=== PATIENT | female | born 1975 | race Caucasian/White ===

== ENCOUNTER → 2021-06-10 07:37 | Outpatient (CLI) | payer BC, SELFPAY ==
[2021-06-10 13:28] LABS: Influenza A QL RT-PCR Negative (Negative); Influenza B QL RT-PCR Negative (Negative); SARS-CoV-2 RNA PCR Negative
== END ==
PROVIDERS: PCP Family Medicine; Visit Provider Physician Assistant
DX: R50.9 Fever, unspecified (principal); Z20.822 Contact with and (suspected) exposure to COVID-19
CPT/HCPCS: 87502; C9803; U0003; U0005

== ENCOUNTER 2023-07-13 07:59 | Outpatient (CLI) | payer OTHER, SELFPAY ==
[2023-07-13 18:55] LABS: Hematocrit 42.8 % (37.0-47.0); Hemoglobin 13.3 g/dL (12.0-15.0); Mean Corpuscular HGB Conc 31.1 g/dl (32-36); Mean Corpuscular Hemoglobin 28.5 pg (26-34); Mean Corpuscular Volume 91.6 fl (80-100); Mean Platelet Volume 9.7 fl (7.4-10.4); Platelet Count Result 281 k/mm3 (150-375); Red Blood Count 4.67 M/mm3 (4.2-5.4); Red Cell Distribution Width 13.5 % (11.5-14.5); White Blood Count 7.6 K/mm3 (4.5-10.0)
[2023-07-13 19:18] LABS: Alanine Aminotransferase 30 U/L (6-35); Albumin Level 4.4 g/dL (3.5-5.1); Alkaline Phosphatase 94 U/L (38-126); Anion Gap 7 mmol/L (8-16); Aspartate Amino Transferase 34 U/L (14-36); Bilirubin,Total 0.6 mg/dL (0.2-1.3); Blood Urea Nitrogen 13 mg/dL (7-17); Carbon Dioxide 31 mmol/L (22-30); Chloride 100 mmol/L (98-107); Cholesterol 161 mg/dL (0-200); Estimated Glomerular Filt Rate 60; Glucose 78 mg/dL (65-110); HDL Direct 47 mg/dL; Sodium 138 mmol/L (137-145); Triglycerides 199 mg/dL (<150)
[2023-07-13 19:27] LABS: Free T4 Free Thyroxine 0.92 ng/mL (0.78-2.19)
[2023-07-13 19:28] LABS: LDL Cholesterol Direct 69 mg/dL
== END 2023-07-13 08:00 | disposition home or self-care (01) ==
LOC: ANHGOSHLAB 08:00
PROVIDERS: PCP Family Medicine; Visit Provider Physician Assistant
DX: R53.83 Other fatigue (principal); Z13.220 Encounter for screening for lipoid disorders; D64.9 Anemia, unspecified; Z13.1 Encounter for screening for diabetes mellitus
CPT/HCPCS: 36415; 80053; 80061; 84439; 84443; 85027

== ENCOUNTER 2023-10-15 00:09 | Emergency (ER) | payer OTHER, SELFPAY ==
--- NOTE | ~2023-10-15 | XR_ITS ---
Right Knee Technique: AP, lateral, and sunrise views were obtained. Clinical History: Injury Findings: No fracture or dislocation is seen. Osseous alignment is anatomic. Joint spaces are preserv ed without degenerative or erosive change. Soft tissues are unremarkable. No joint effusion is seen. Impression: Unremarkable right knee radiographs. Reviewed, dictated and finalized at location . Impression: Unremarkable right knee radiographs.
[2023-10-15 00:33] VITALS: BP 137/92; PULSE 77; O2SAT 99
--- NOTE | 2023-10-15 00:58 | ED.FALL ---
HPI - Fall General Chief Complaint: Extremity Injury, Lower Stated Complaint: r knee pain Time Seen by Provider: 10/15/23 00:37 Related Data Home Medications Medication Instructions Recorded Confirmed ascorbic acid (vitamin C) 500 mg mg PO 03/18/21 10/09/23 capsule cyanocobalamin (vitamin B-12) 1,000 mcg PO DAILY 03/18/21 10/09/23 1,000 mcg capsule ferrous sulfate 325 mg (65 mg 325 mg PO DAILY 07/10/22 10/09/23 iron) tablet Allergies Allergy/AdvReac Type Severity Reaction Status Date / Time citalopram Allergy Unknown Unknown Verified 10/15/23 00:21 Sulfa (Sulfonamide Allergy Unknown Unknown Verified 10/15/23 00:21 Antibiotics) [facility] Past Medical History Medical History Anxiety COVID-19 Depression HLD (hyperlipidemia) Pre-diabetes Family History Family History Mother Mood disorder Sibling Diabetes mellitus Mood disorder Other Hypertension Social History Social History Smoking status: Never smoker Second hand tobacco smoke exposure: No Alcohol intake: never Substance use: never Substance use type: does not use Lack of Transportation: No Lack of Food: Never True Current Housing: I Have Housing Concerned About Future Housing: No Difficulty Paying Gas/Electric Bills: No Difficulty Paying for Meds: No Currently Unemployed: No Education: Associate Degree Difficulty w/ Childcare or Family Care: No Living arrangements: with family Spiritual care concerns: No Agree to blood products: Yes Exam Narrative: General: Alert, awake, afebrile, in no acute distress. HEENT: PERRL, no rhinorrhea, no post nasal drip, oropharynx clear. Cardiovascular: Regular rate and rhythm, no murmurs, rubs or gallops, no peripheral edema. Respiratory: Clear to auscultation bilaterally, no tachypnea, no wheezing, no rhonchi, no rubs, no respiratory distress. Abdomen: Soft, nontender, nondistended, no rebound, no guarding, no peritoneal signs. Musculoskeletal: No joint swelling or deformity, normal muscle tone, intact right knee flexion and extension, no effusion palpated, tenderness palpation over the superior aspect of the right knee joint. Skin: No rashes or petechia, no signs of infection. Neurological: Alert and oriented to person, place, and time. Follows all commands. No focal deficits, speech is clear and fluent. Course Vital Signs Vital signs: Vital Signs Pulse Rate 77 10/15/23 00:33 Blood Pressure 137/92 H 10/15/23 00:33 Pulse Oximetry 99 10/15/23 00:33 Pulse Rate 77 10/15/23 00:33 Blood Pressure 137/92 H 10/15/23 00:33 Pulse Oximetry 99 10/15/23 00:33 MDM - Fall MDM Narrative Medical decision making narrative: The patient was evaluated by myself in the emergency department. History is obtained from patient who is an independent historian and physical exam was performed. External medical records were reviewed at this time. Imaging studies obtained included a right knee x-ray which was independently interpreted by me revealing no acute process, which is pending final radiology interpretation. Patient was informed that the x-rays could currently pending official radiology read and that although I did not visualize any fractures, she could have some ligamentous injury which would require an MRI. Patient was provided with an Dylon wrap and informed that she needs to follow up with Orthopedics in 1 week patient is agreeable. She was administered oral [place] 5-325 mg for pain and instructed that at home she can take Tylenol and or ibuprofen as needed for pain and follow the rice pneumonic. Differential diagnosis considerations include ligamentous injury, fractures, contusion. Comorbidities impacting this visit include none. I have evaluated and discussed social dete
== END 2023-10-15 01:18 | disposition home or self-care (01) ==
PROVIDERS: Emergency Provider Emergency Medicine; PCP Nurse Practitioner Family
DX: M23.91 Unspecified internal derangement of right knee (principal); E78.5 Hyperlipidemia, unspecified
CPT/HCPCS: 73562; 99283; A9270

== ENCOUNTER 2023-11-20 07:34 | Emergency (ER) | payer OTHER, SELFPAY ==
--- NOTE | ~2023-11-20 | XR_ITS ---
Right Shoulder Technique: AP and scapular Y views were obtained. Clinical History: Pain Findings: No fracture or dislocation is seen. Osseous alignment is anatomic. The glenohumeral and acr omioclavicular joint spaces are preserved. Soft tissues are unremarkable. Impression: Unremarkable right shoulder radiographs. Reviewed, dictated and finalized at [facility]. Impression: Unremarkable right shoulder radiographs.
--- NOTE | ~2023-11-20 | XR_ITS ---
Right wrist Technique: PA, oblique, lateral, and ulnar deviation views were obtained. Clinical History: Pain Findings: No acute fracture or dislocation is seen. Osseous alignment is anatomic. Joint spaces are p reserved. Soft tissues are unremarkable. Impression: Unremarkable right wrist radiographs. Reviewed, dictated and finalized at location . Impression: Unremarkable right wrist radiographs.
[2023-11-20 07:40] VITALS: BP 134/74; PULSE 94; RESP 20; TEMP 36.2; O2SAT 98
--- NOTE | 2023-11-20 09:49 | ED.FALL ---
HPI - Fall General Chief Complaint: Fall Stated Complaint: fall Time Seen by Provider: 11/20/23 07:55 History of Present Illness HPI Narrative: This is a 48-year-old female, with history of hyperlipidemia and hypertension, presents emergency department after a fall down stairs. The patient states she was in her normal health, when she felt dizzy and slipped down 10 stairs. She states she hit her head but did not lose consciousness. She denies taking blood thinners. She complains of right shoulder, right knee and right wrist pain, all described as dull and rated 5/10. She states she took ibuprofen this morning with improvement. She has no other complaints at this time. Related Data Home Medications Medication Instructions Recorded Confirmed ascorbic acid (vitamin C) 500 mg mg PO 03/18/21 10/09/23 capsule cyanocobalamin (vitamin B-12) 1,000 mcg PO DAILY 03/18/21 10/09/23 1,000 mcg capsule ferrous sulfate 325 mg (65 mg 325 mg PO DAILY 07/10/22 10/09/23 iron) tablet Allergies Allergy/AdvReac Type Severity Reaction Status Date / Time citalopram Allergy Unknown Unknown Verified 11/20/23 07:59 Sulfa (Sulfonamide Allergy Unknown Unknown Verified 11/20/23 07:59 Antibiotics) Review of Systems Review of Systems: All systems reviewed & are unremarkable except as noted in HPI and below PMFSH Past Medical History Medical History Anxiety COVID-19 Depression HLD (hyperlipidemia) Pre-diabetes Family History Family History Mother Mood disorder Sibling Diabetes mellitus Mood disorder Other Hypertension Social History Social History (System 10/19/23 @ 16:18 by Sushant Fong) Smoking status: Never smoker Second hand tobacco smoke exposure: No Alcohol intake: never Substance use: never Substance use type: does not use Lack of Transportation: No Lack of Food: Never True Current Housing: I Have Housing Concerned About Future Housing: No Difficulty Paying Gas/Electric Bills: No Difficulty Paying for Meds: No Currently Unemployed: No Education: Associate Degree Difficulty w/ Childcare or Family Care: No Living arrangements: with family Spiritual care concerns: No Agree to blood products: Yes Exam Narrative: GENERAL: Well-developed, well-nourished, and in no acute distress. HEAD: Normocephalic, atraumatic. EYES: PERRLA and EOMI. ENT: Nares clear, no rhinorrhea or epistaxis. Mucous membranes moist. Oropharynx without tonsillar hypertrophy exudate or other lesions. Bilateral TMs pearly lovelace nonbulging NECK: Supple. No midline spine tenderness to palpation, crepitus CHEST: Clear to auscultation. No respiratory distress. No wheezes rales or rhonchi HEART: Regular rate and rhythm. No murmur heard. Normal peripheral pulses. ABDOMEN: Soft, nontender, nondistended, normal active bowel sounds. BACK: No midline spine tenderness to palpation, crepitus EXTREMITIES: Mildly tender to palpation over the right shoulder, tender palpation over the right wrist. Minimal tenderness to palpation over the right knee, primarily in the lateral aspect. No real noted deformities. Normal range of motion. No edema. SKIN: Warm, dry, no rash. NEURO: Alert and oriented x3. No focal deficit. Moving all 4 limbs spontaneously PSYCH: Normal mood and affect. Course Course Emergency Course: 09:50 -x-rays not concerning for fracture or dislocation. I suspect contusion as a cause of patient's pain. Will discharge recommendation primary care follow-up as well as lidocaine patches, muscle relaxers and Tylenol/ibuprofen as needed for pain. I discussed the findings and recommendations with the patient. Discussed return and emergency precautions including signs/symptoms of intracranial hemorrhage and respiratory distress. The patient voiced understanding and agreement with the plan. All
== END 2023-11-20 09:59 | disposition home or self-care (01) ==
PROVIDERS: Emergency Provider Preventive Medicine Aerospace Medicine; PCP Nurse Practitioner Family
DX: S40.011A Contusion of right shoulder, initial encounter (principal); S89.91XA Unspecified injury of right lower leg, initial encounter; S69.91XA Unspecified injury of right wrist, hand and finger(s), initial encounter; E78.5 Hyperlipidemia, unspecified; I10 Essential (primary) hypertension; R73.03 Prediabetes; Z86.16 Personal history of COVID-19; W10.9XXA Fall (on) (from) unspecified stairs and steps, initial encounter
CPT/HCPCS: 73030; 73110; 73564; 99284

== ENCOUNTER 2024-05-15 01:21 | Day surgery (SDC) | payer OTHER, SELFPAY ==
[2024-04-25 12:23] VITALS: BMI 45.8
[2024-05-15 06:56] VITALS: BP 137/85; PULSE 110; RESP 18; TEMP 36.1; O2SAT 97
[2024-05-15 06:59] LABS: BEDSIDEPREGUCG Negative (Negative)
[2024-05-15] MEDS: LACTATED RINGERS 1,000 ML 150 ML IV CONT (07:06)
--- NOTE | 2024-05-15 07:14 | P.PNAN_ITS ---
Anes - Initial Pre Proc Eval Procedure: Operation Date: 05/15/24 07:30 Proposed Procedures p Screening Colonoscopy - Benjamin Mcdonough DO Date/Time: 05/15/24 07:14 Surgeon: Benjamin Mcdonough DO Pre Op Diagnosis: Screening for malignant neoplasm of colon Patient Data Age: 49 Gender: F Height: 1.63 m Weight: 120.7 kg Last Vital Signs Temp 36.1 C L 05/15/24 06:56 Pulse 110 H 05/15/24 06:56 Resp 18 05/15/24 06:56 BP 137/85 05/15/24 06:56 Pulse Ox 97 05/15/24 06:56 O2 Del Method Room Air 05/15/24 06:56 Allergies Allergy/AdvReac Type Severity Reaction Status Date / Time citalopram Allergy Unknown Unknown Verified 05/15/24 06:48 Sulfa (Sulfonamide Allergy Unknown Unknown Verified 05/15/24 06:48 Antibiotics) Home Medications ?Medication ?Instructions ?Recorded ?Confirmed ?Type ascorbic acid (vitamin C) 500 mg See Rx Instructions PO .COMPLEX 03/18/21 05/15/24 History capsule ferrous sulfate 325 mg (65 mg 325 mg PO DAILY 07/10/22 05/15/24 History iron) tablet rizatriptan 5 mg tablet See Rx Instructions PO .COMPLEX 11/14/23 04/25/24 Rx #14 tabs cyclobenzaprine 5 mg tablet 5 mg PO HS PRN muscle spasm #5 tabs 11/20/23 04/25/24 Rx multivitamin 1 tablet PO DAILY 11/23/23 05/15/24 History aripiprazole 2 mg tablet (Abilify) 2 mg PO DAILY #30 tabs 11/30/23 05/15/24 Rx atorvastatin 20 mg tablet 20 mg PO DAILY #90 tabs 11/30/23 05/15/24 Rx bupropion HCl 300 mg 24 hr tablet, 300 mg PO QAM #90 tabs 11/30/23 05/15/24 Rx extended release buspirone 7.5 mg tablet 7.5 mg PO BID #180 tabs 11/30/23 05/15/24 Rx lisinopril 10 See Rx Instructions .Route 11/30/23 05/15/24 Rx mg-hydrochlorothiazide 12.5 mg .COMPLEX #90 tabs tablet fluoxetine 40 mg capsule 80 mg (2 x 40 mg) PO DAILY #180 03/03/24 05/15/24 Rx caps alprazolam 1 mg tablet 1 mg PO TID PRN anxiety #60 tabs 03/10/24 05/15/24 Rx aripiprazole 5 mg tablet (Abilify) 5 mg PO DAILY #30 tabs 03/31/24 05/15/24 Rx phentermine 15 mg capsule 15 mg PO DAILY #30 caps 04/04/24 05/15/24 Rx ubrogepant 100 mg tablet (Ubrelvy) 100 mg PO ONCE #14 tabs 04/07/24 04/25/24 Rx Laboratory Tests 05/15/24 06:55 POC Urine HCG, Qual Negative (Negative) Patient hx anesthesia problems: none Family hx anesthesia problems: none Results Review: All pre-operative results and documents have been reviewed as part of the pre- operative evaluation. [facility] Past Medical History Medical History COVID-19 Pre-diabetes HLD (hyperlipidemia) Anxiety Depression Family History Family History Mother Mood disorder Sibling Diabetes mellitus Mood disorder Other Hypertension Social History Social History Smoking status: Never smoker Second hand tobacco smoke exposure: No Alcohol intake: never Substance use: never Substance use type: does not use Lack of Transportation: No Lack of Food: Never True Current Housing: I Have Housing Concerned About Future Housing: No Difficulty Paying Gas/Electric Bills: No Difficulty Paying for Meds: No Currently Unemployed: No Education: Associate Degree Difficulty w/ Childcare or Family Care: No Living arrangements: with family Spiritual care concerns: No Agree to blood products: Yes Anes - Eval Final PreProcedure Day of Procedure 05/15/24 07:14 Patient weight: morbidly obese Heart: regular rate and rhythm Lungs: clear to auscultation Airway: Mallampati scale class II Neurological: alert and oriented Last oral intake: >/= 8 hours ASA classification: III Emergent: no Anesthetic plan: proceed Anesthesia type and monitoring: general GIVS Results Review: All pre-operative results and documents have been reviewed as part of the pre- operative evaluation. Informed Consent: The patient's anesthetic plan and its attendant risks and benefits were discussed with the patient/family/POA. Questions were solicited and answers provided to the satisfaction of the patient/family/POA.
--- NOTE | 2024-05-15 07:29 | P.HP_ITS ---
H&P: HPI History of Present Illness Date/Time: 05/15/24 07:29 Chief Complaint: Screening for colorectal cancer Narrative: this is a 49-year-old woman who presents for colonoscopy. She has never had a colonoscopy before. She denies any hematochezia or melena. She denies family history of colon cancer. Review of Systems Review of Systems: All systems reviewed & are unremarkable except as noted in HPI and below Constitutional: Constitutional: Denies chills, Denies fever(s), Denies headache(s) and Denies weight loss Eyes: Eyes: Denies change in vision ENT: Denies dizziness, Denies headache(s), Denies neck mass and Denies throat swelling Cardiovascular: Cardiovascular: Denies chest pain, Denies lightheadedness and Denies dyspnea Respiratory: Respiratory: Denies cough, Denies dyspnea and Denies wheezing Gastrointestinal: Gastrointestinal: Denies abdominal pain, Denies change in bowel habits, Denies nausea and Denies vomiting Genitourinary: Genitourinary: Denies hematuria and Denies dysuria Musculoskeletal: Musculoskeletal: Reports as per HPI Integumentary/Breasts: Skin/Breast: Reports as per HPI Neurologic: Denies dizziness and Denies headache(s) Allergic/Immunologic: Allergic/Immunologic: Denies throat swelling and Denies wheezing [facility] Past Medical History Medical History COVID-19 Pre-diabetes HLD (hyperlipidemia) Anxiety Depression Family History Family History Mother Mood disorder Sibling Diabetes mellitus Mood disorder Other Hypertension Social History Social History Smoking status: Never smoker Second hand tobacco smoke exposure: No Alcohol intake: never Substance use: never Substance use type: does not use Lack of Transportation: No Lack of Food: Never True Current Housing: I Have Housing Concerned About Future Housing: No Difficulty Paying Gas/Electric Bills: No Difficulty Paying for Meds: No Currently Unemployed: No Education: Associate Degree Difficulty w/ Childcare or Family Care: No Living arrangements: with family Spiritual care concerns: No Agree to blood products: Yes Meds Home Medications and Allergies Home Medications ?Medication ?Instructions ?Recorded ?Confirmed ?Type ascorbic acid (vitamin C) 500 mg See Rx Instructions PO .COMPLEX 03/18/21 05/15/24 History capsule ferrous sulfate 325 mg (65 mg 325 mg PO DAILY 07/10/22 05/15/24 History iron) tablet rizatriptan 5 mg tablet See Rx Instructions PO .COMPLEX 11/14/23 04/25/24 Rx #14 tabs cyclobenzaprine 5 mg tablet 5 mg PO HS PRN muscle spasm #5 tabs 11/20/23 04/25/24 Rx multivitamin 1 tablet PO DAILY 11/23/23 05/15/24 History aripiprazole 2 mg tablet (Abilify) 2 mg PO DAILY #30 tabs 11/30/23 05/15/24 Rx atorvastatin 20 mg tablet 20 mg PO DAILY #90 tabs 11/30/23 05/15/24 Rx bupropion HCl 300 mg 24 hr tablet, 300 mg PO QAM #90 tabs 11/30/23 05/15/24 Rx extended release buspirone 7.5 mg tablet 7.5 mg PO BID #180 tabs 11/30/23 05/15/24 Rx lisinopril 10 See Rx Instructions .Route 11/30/23 05/15/24 Rx mg-hydrochlorothiazide 12.5 mg .COMPLEX #90 tabs tablet fluoxetine 40 mg capsule 80 mg (2 x 40 mg) PO DAILY #180 03/03/24 05/15/24 Rx caps alprazolam 1 mg tablet 1 mg PO TID PRN anxiety #60 tabs 03/10/24 05/15/24 Rx aripiprazole 5 mg tablet (Abilify) 5 mg PO DAILY #30 tabs 03/31/24 05/15/24 Rx phentermine 15 mg capsule 15 mg PO DAILY #30 caps 04/04/24 05/15/24 Rx ubrogepant 100 mg tablet (Ubrelvy) 100 mg PO ONCE #14 tabs 04/07/24 04/25/24 Rx Allergies Allergy/AdvReac Type Severity Reaction Status Date / Time citalopram Allergy Unknown Unknown Verified 05/15/24 06:48 Sulfa (Sulfonamide Allergy Unknown Unknown Verified 05/15/24 06:48 Antibiotics) Vital Signs Vital Signs - 24 hr 05/15/24 06:56 Temperature 97 F L Pulse Rate 110 H Respiratory Rate 18 Blood Pressure 137/85 Pulse Oximetry 97 Oxygen Delivery Room Air Exam Const: General: no acute distress and alert Orientation/consciousness: patient oriented x3 HENMT: Head: normocephalic and atraumatic Ears: hearing grossly normal bilaterally Face/Nose/Sinus: Normal nares present Mouth: Yes Normal oral and palatal mucosa present Eyes: Periorbital: periorbital findings normal Sclera: sclerae normal EOM: EOMs intact bilaterally Neck: Neck: normal visual inspection, no lymphadenopathy and trachea midline Chest: Chest palpation & inspection: normal inspection of the chest Resp: Effort & Inspection: normal respiratory effort Auscultation: clear to auscultation bilaterally Cardio: Jugular venous distension: no JVD Rate: regular rate Rhythm: regular rhythm Heart sounds: S1 normal heart sound present and S2 normal heart sound present Peripheral pulses: Peripheral pulses 2+ throughout GI: Inspection: normal to inspection GI Palp: Yes Soft to palpation, No Tenderness to palpation present (GI), No Guarding due to palpation present (GI) and No Rebound tenderness present Percussion: Yes normal to percussion Auscultation: normal bowel sounds : General: Yes no CVA tenderness Back/Spine/Pelvis: Back: no CVA tenderness Neuro: General: patient oriented x3, no focal motor deficits and CN's II-XI intact bilaterally Cognition (Neuro): normal cognition Speech: normal speech Motor exam (neuro): 5/5 motor strength present throughout Extrem: General: capillary refill normal and no clubbing, cyanosis or edema Assessment and Plan Assessment and plan (1) Screening for colorectal cancer: Code(s): Z12.11 - Encounter for screening for malignant neoplasm of colon; Z12.12 - Encounter for screening for malignant neoplasm of rectum Status: Acute Assessment and Plan: I have recommended colonoscopy. I have discussed the procedure, risks, benefits, and alternatives. Questions were answered. Patient is agreeable to proceed.
[2024-05-15 07:48] VITALS: BP 118/63; PULSE 90; RESP 21; O2SAT 97
[2024-05-15 07:58] VITALS: BP 105/47; PULSE 84; RESP 18; O2SAT 98
[2024-05-15 08:08] VITALS: BP 110/57; PULSE 79; RESP 20; O2SAT 100
== END 2024-05-15 08:20 | disposition home or self-care (01) ==
PROVIDERS: Anesthesiology; PCP Nurse Practitioner Family; Visit Provider Surgery
PROC: 0DJD8ZZ Inspection of Lower Intestinal Tract, Via Natural or Artificial Opening Endoscopic (ICD-10-PCS; CPT 45378; principal; 2024-05-15 07:30)
DX: Z12.11 Encounter for screening for malignant neoplasm of colon (principal); E78.5 Hyperlipidemia, unspecified; R73.03 Prediabetes; F41.9 Anxiety disorder, unspecified; F32.A Depression, unspecified; E66.01 Morbid (severe) obesity due to excess calories; Z68.42 Body mass index [BMI] 45.0-49.9, adult
CPT/HCPCS: 45378; J2704; J7120

== ENCOUNTER 2024-11-01 07:24 | Outpatient (CLI) | payer OTHER, SELFPAY ==
[2024-11-01 08:44] LABS: Basophils Percent Auto 0.6 % (0.2-1.2); Eosinophils Absolute Auto 0.2 K/mm3 (0-0.3); Eosinophils Percent Auto 3.4 % (0-4.4); Hematocrit 40.6 % (37.0-47.0); Immature Granulocyte Absolute 0.02 K/mm3 (0.00-0.031); Immature Granulocyte Percent A 0.3 % (0-0.5); Lymphocytes Absolute Auto 1.97 K/mm3 (0.9-3.2); Lymphocytes Percent Auto 28.1 % (18.3-44.2); Mean Corpuscular Hemoglobin 28.8 pg (26-34); Mean Platelet Volume 9.6 fl (7.4-10.4); Monocytes Absolute Auto 0.4 K/mm3 (0.1-0.6); Monocytes Percent Auto 6.1 % (2.6-8.5); Neutrophils Absolute Auto 4.3 K/mm3 (1.3-6.7); Neutrophils Percent Auto 61.5 % (45.5-73.1); Platelet Count Result 257 k/mm3 (150-375); Red Blood Count 4.51 M/mm3 (4.2-5.4); Red Cell Distribution Width 14.1 % (11.5-14.5)
[2024-11-01 08:55] LABS: Alanine Aminotransferase 25 U/L (6-35); Albumin Level 4.2 g/dL (3.5-5.1); Alkaline Phosphatase 64 U/L (38-126); Anion Gap 8 mmol/L (4-12); Aspartate Amino Transferase 27 U/L (14-36); Bilirubin,Total 0.6 mg/dL (0.2-1.3); Blood Urea Nitrogen 10 mg/dL (7-17); Calcium 9.5 mg/dL (8.4-10.2); Carbon Dioxide 27 mmol/L (22-30); Chloride 102 mmol/L (98-107); Cholesterol 239 mg/dL (0-200); Estimated Glomerular Filt Rate 57; Glucose 94 mg/dL (65-110); HDL Direct 49 mg/dL; Potassium 3.7 mmol/L (3.4-5.0); Sodium 137 mmol/L (137-145); Triglycerides 271 mg/dL (<150)
[2024-11-01 09:05] LABS: LDL Cholesterol Direct 108 mg/dL
== END 2024-11-01 07:25 | disposition home or self-care (01) ==
LOC: ANHLAB 07:25
PROVIDERS: PCP Nurse Practitioner Family; Visit Provider Nurse Practitioner Family
DX: E78.5 Hyperlipidemia, unspecified (principal); F41.9 Anxiety disorder, unspecified; F32.89 Other specified depressive episodes; E66.9 Obesity, unspecified
CPT/HCPCS: 36415; 80053; 80061; 84443; 85025

== ENCOUNTER 2024-12-04 07:07 | Emergency (ER) | payer OTHER, SELFPAY ==
--- NOTE | ~2024-12-04 | XR_ITS ---
XR shoulder RT min 2V 12/04/2024 09:08 Indication: Right shoulder pain after recent fall Procedure: 4 views right shoulder Comparison: No prior studies for comparison. Findings: There is anatomic alignment. No acute fracture, subluxation or dislocation. No soft tissue abnormality. No foreign bodies. Impression: 1: No acute bone or joint abnormality. Reviewed, dictated and finalized at location A. Impression: 1: No acute bone or joint abnormality.
--- NOTE | ~2024-12-04 | CT_ITS ---
EXAM: CT brain wo con - 12/04/2024 8:45 CDT History: 49 years old Female with trauma COMPARISON: None available. PROCEDURE: CT of the head without contrast. Axial, sagittal and coronal reformatted planes were ricardo luated. Automatic exposure control was used for this study. FINDINGS: Evaluation is limited secondary to artifact caused by the patient's motion. BRAIN PARENCHYMA: No acute hemorrhage. No mass effect or herniation. Moreno-white matter differentiatio n is maintained. Normal appearance of cortex. VENTRICLES/ EXTRA-AXIAL SPACES: No hydrocephalus or extra-axial fluid collection. EXTRACRANIAL STRUCTURES: No calvarial fracture. IMPRESSION: No evidence for acute intracranial hemorrhage or calvarial fracture. Reviewed, dictated and finalized at location A.
--- NOTE | ~2024-12-04 | XR_ITS ---
XR elbow RT min 3V 12/04/2024 09:07 INDICATION: Right elbow pain PROCEDURE: 4 views right elbow COMPARISON: No prior studies for comparison. FINDINGS: Fracture, dislocation or subluxation is not identified. The soft tissues appear within norm al limits. No foreign bodies are identified. IMPRESSION: 1: NO ACUTE BONE OR JOINT ABNORMALITY IDENTIFIED. Reviewed, dictated and finalized at location A.
--- OUTSIDE RECORDS SUMMARY | 2024-12-04 07:14 | XMS_ITS | Encounter Summary ---
Author Organization [facility] Address [address] [place] [address] Care Team Providers Care District Sales Coordinator Name Role Phone Unavailable Primary Care Provider Unavailabl e Encounter Details Date Type Department Care Team (Late st Contact Info) Description 10/23/2024 Lab Requisition [facility] - DermPath Lab [address] [facility] [facility] [place] [id number] Shirlene Atkinson MD [address] [facility] [address] [place] [address] Social History Tobacco Use Types Packs/Day Years Used Date Smoking Tobacco: Never Assessed Comments Unknown Sex and Gender Information Value Date Recorded Sex Assigned at Not on file Legal Sex Female 1:03 PM SUPPLY PERSON Gender Identity Not on file Sexual Orientation Not on file documented as of this encounter Plan of Treatment Not on file documented as of this encounter Procedures Procedure Name Priority Date/Time Associated Diagnosis Comments DERMATOPATHOLOGY Routine 10/23/2024 3:31 PM CDT documented in this encounter Results * DERMATOPATHOLOGY (10/23/2024 3:31 PM CDT) Case Report Dermatopathology Report Case: [id number] Authorizing Provider: Shirlene Atkinson MD Collected: 10/23/2024 03:31 PM Ordering Location: [facility] - Received: 10/27/2024 11:00 AM DermPath Lab Pathologist: Candis Bardales MD Specimen: Skin, left lower eyelid 5 2:24 PM CDT DERMATOPATHOLOGY LABORATORY Final Diagnosis Specimen A. SKIN, left lower eyelid: EPIDERMOID CYST (L72.0) 5 2:24 PM CDT DERMATOPATHOLOGY LABORATORY at 1424 CDT Clinical History Cyst 2:24 PM CDT DERMATOPATHOLOGY LABORATORY Gross Description Specimen A: Received is one formalin filled container labeled with the patient's name and designated left lower eyelid. The specimen consists of a 9x6x4 mm piece of skin. The margin is inked green. The specimen is bisected lengthwise and submitted in 1 cassette. Jar 0. 2:24 PM CDT DERMATOPATHOLOGY LABORATORY Microscopic Description Specimen A. SKIN, left lower eyelid: Within the dermis, there is a space lined by epithelium that resembles normal epidermis and the infundibular portion of the hair follicle. 2:24 PM CDT DERMATOPATHOLOGY LABORATORY Disclaimer An external and internal positive and negative controls are appropriate for the histochemical, immunohistochemical and immunofluorescence stain(s) in this case (if any), except where stated explicitly. The performance characteristics of the stain(s) cited in this report were developed and its performance characteristic determined by the Dermatopathology Laboratory at [facility], directed by Dr. Bebeto Bardales. These tests need not be, and therefore are not, approved by the [place] Food and Drug Administration. The tests are used for clinical purposes. Billing Codes Specimen Charges Stain Charges 72166 1 2:24 PM CDT DERMATOPATHOLOGY LABORATORY Embedded Images 2:24 PM CDT DERMATOPATHOLOGY LABORATORY Pathology/Cytolo gy TISSUE SPECIMEN FROM SKIN / Unknown 10/23/2024 3:31 PM CDT 10/27/2024 11:00 AM CDT us Shirlene Atkinson MD LAB - PATHOLOGY/CYTOLOGY ORD ERABLES Final Result DERMATOPATHOLOGY LABORATORY [facility] - Department of Dermatology [address] [place] [address], [facility] [phone] documented in this encounter Visit Diagnoses Not on filedocumented in this encounter
--- OUTSIDE RECORDS SUMMARY | 2024-12-04 07:14 | XMS_ITS | Clinical Summary ---
Author Organization [facility] Address [address] [place] [address] Care Team Providers Care Travel Physical Therapist Name Role Phone Unavailable Primary Care Provider Unavailabl e Source Comments [facility],non-owned Affiliates and Associated Physician Practices is amultiple site organization consisting of ambulatory clinics and hospital sitesin [place], [place], [place]. This disclosure is being madepursuant to the Care Everywhere program and may not contain all information available regarding this patient. 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 Gender Identity Not on file Sexual Orientation Not on file Plan of Treatment Health Maintenance Due Date Last Done Comments COLOGUARD (AGES 45-75) - COL ON CA SCREENING 1977 COLON MONITORING 1977 COLONOSCOPY - COLON CA SCREENING 1977 CT COLONOGRAPHY - COLON CA SCREENING 1977 Colorectal Cancer Screening 1977 FIT - COLON CA SCREENING 1977 FLEX SIG - COLON CA SCREENING 1977 LIPID TESTING 1977 MAMMOGRAM 1977 HIV SCREENING 1992 HEPATITIS C SCREENING 03/15/1995 DTAP/TDAP/TD VACCINES (1 - Tdap) 1996 HEPATITIS B VACCINE (1 of 3 - 19+ 3-dose series) 1996 PAP SMEAR 1998 COVID-19 VACCINE (2023-2 5 season) 2024 DEPRESSION SCREENING 05/14/2024 INFLUENZA VACCINE (#1) 2025 ZOSTER VACCINE (1 of 2) 2027 HIB VACCINE Aged Out No longer eligi ble based on patient's age to complete this topic HPV VACCINE Aged Out No longer eligi ble based on patient's age to complete this topic MENINGOCOCCAL (Group B) VACC INE SHARED DECISION-MAKING Aged Out No longer eligibl e based on patient's age to complete this topic MENINGOCOCCAL GROUPS A/C/Y/W VACCINE Aged Out No longer eligible b ased on patient's age to complete this topic PNEUMOCOCCAL VACCINE Aged Out No long er eligible based on patient's age to complete this topic Procedures Procedure Name Priority Date/Time Associated Diagnosis Comments DERMATOPATHOLOGY Routine 10/23/2024 3:31 PM CDT from Last 3 Months Results * DERMATOPATHOLOGY (10/23/2024 3:31 PM CDT) Case Report Dermatopathology Report Case: [id number] Authorizing Provider: Shirlene Atkinson MD Collected: 10/23/2024 03:31 PM Ordering Location: [facility] - Received: 10/27/2024 11:00 AM DermPath Lab Pathologist: Candis Bardales MD Specimen: Skin, left lower eyelid 2:24 PM CDT DERMATOPATHOLOGY LABORATORY Final Diagnosis Specimen A. SKIN, left lower eyelid: EPIDERMOID CYST (L72.0) 2:24 PM CDT DERMATOPATHOLOGY LABORATORY at 1424 [...] the infundibular portion of the hair follicle. 5 2:24 PM CDT DERMATOPATHOLOGY LABORATORY Disclaimer An external and internal positive and negative controls are appropriate for the histochemical, immunohistochemical and immunofluorescence stain(s) in this case (if any), except where stated explicitly. The performance characteristics of the stain(s) cited in this report were developed and its performance characteristic determined by the Dermatopathology Laboratory at [facility], directed by Dr. Bebeto Bardales. These tests need not be, and therefore are not, approved by the [place] Food and Drug Administration. The tests are used for clinical purposes. Billing Codes Specimen Charges Stain Charges 70589 1 5 2:24 PM CDT DERMATOPATHOLOGY LABORATORY Embedded Images 5 2:24 PM CDT DERMATOPATHOLOGY LABORATORY Pathology/Cytolo gy TISSUE SPECIMEN FROM SKIN / Unknown 10/23/2024 3:31 PM CDT 10/27/2024 11:00 AM CDT Shirlene Atkinson MD LAB - PATHOLOGY/CYTOLOGY ORD ERABLES Final Result DERMATOPATHOLOGY LABORATORY [facility] - Department of Dermatology [facility] Medicine [address] [place] [address], [address] [phone] from Last 3 Months Insurance [employer]
[2024-12-04 07:30] VITALS: BP 150/85; PULSE 84; RESP 18; TEMP 37.1; O2SAT 97
--- NOTE | 2024-12-04 09:19 | ED_ITS ---
HPI - Extremity Injury (Upper) General Chief Complaint: Extremity Injury, Upper Stated Complaint: fall last -right arm pain Time Seen by Provider: 12/04/24 08:24 History of Present Illness HPI narrative: Pt fell a week ago and landed on right arm and face. Pt denies LOC but has had persistent MACEDO since fall and her right elbow and shoulder have continued to hurt so she wants to make sure they aren't broken. Pt denies neurologic symptoms. Related Data Home Medications ?Medication ?Instructions ?Recorded ?Confirmed ?Last Taken ?Type ascorbic acid (vitamin C) 500 mg See Rx Instructions PO .COMPLEX 03/18/21 10/03/24 05/14/24 History capsule ferrous sulfate 325 mg (65 mg 325 mg PO DAILY 07/10/22 10/03/24 05/03/24 History iron) tablet multivitamin 1 tablet PO DAILY 11/23/23 10/03/24 05/14/24 History Allergies Allergy/AdvReac Type Severity Reaction Status Date / Time citalopram Allergy Unknown Unknown Verified 12/04/24 08:35 Sulfa (Sulfonamide Allergy Unknown Unknown Verified 12/04/24 08:35 Antibiotics) Review of Systems Review of Systems: All systems reviewed & are unremarkable except as noted in HPI and below PMFSH Past Medical History Medical History COVID-19 Pre-diabetes HLD (hyperlipidemia) Anxiety Depression Family History Family History Mother Mood disorder Sibling Diabetes mellitus Mood disorder Other Hypertension Social History Social History Smoking status: Never smoker Second hand tobacco smoke exposure: No Alcohol intake: never Substance use: never Substance use type: does not use Lack of Transportation: No Lack of Food: Never True Current Housing: I Have Housing Concerned About Future Housing: No Difficulty Paying Gas/Electric Bills: No Difficulty Paying for Meds: No Currently Unemployed: No Education: Associate Degree Difficulty w/ Childcare or Family Care: No Living arrangements: with family Spiritual care concerns: No Agree to blood products: Yes Exam Const: General: healthy appearing and no acute distress Nutritional Appearance: well nourished Orientation/consciousness: patient oriented x3 Limitations: no limitations HENMT: Head: normal to inspection Face and sinus: normal facial exam Throat: posterior oropharynx normal Eyes: EOM: EOMs intact bilaterally Neck: Neck: normal visual inspection and no meningeal signs Resp: Effort & Inspection: normal respiratory effort Auscultation: clear to auscultation bilaterally Cardio: Rate: regular rate Rhythm: regular rhythm GI: GI Palp: Yes Soft to palpation Skin: Other: some bruising right elbow Neuro: General: patient oriented x3, moves all extremities and no focal motor deficits Speech: normal speech Extrem: Other: tender over right elbow and should but no swelling or deformity Psych: Mental Status: mental status grossly normal Affect: normal affect Attitude: cooperative Course Vital Signs Vital signs: Vital Signs Temperature 98.7 F 12/04/24 07:30 Pulse Rate 84 12/04/24 07:30 Respiratory Rate 18 12/04/24 07:30 Blood Pressure 150/85 H 12/04/24 07:30 Pulse Oximetry 97 12/04/24 07:30 Oxygen Delivery Room Air 12/04/24 07:30 Temperature 98.7 F 12/04/24 07:30 Pulse Rate 84 12/04/24 07:30 Respiratory Rate 18 12/04/24 07:30 Blood Pressure 150/85 H 12/04/24 07:30 Pulse Oximetry 97 12/04/24 07:30 Oxygen Delivery Room Air 12/04/24 07:30 MDM - Extremity Injury (Upper) MDM Narrative Medical decision making narrative: Pt fell a week ago and landed on face and rue. Pt has MACEDO so will need CT to rule out sah or subdural will x ray shoulder and elbow to rule out fx. x rays and ct all neg. will presribe some robaxin for muscle relaxation. Discharge Plan Discharge Clinical Impression: Right elbow pain, Headache Patient Disposition: Home Condition: Stable Instructions: Antibiotic Form, Head Injury (DC), Arthralgia (ED) Patient Language: Argentine Prescriptions: New methocarbamol 750 mg tablet 750 mg PO TID Qty: 14 0RF No Action ferrous sulfate 325 mg (65 mg iron) tablet 325 mg PO DAILY ascorbic acid (vitamin C) 500 mg capsule See Rx Instructions PO .COMPLEX Rx Instructions: 1 tab orally; multivitamin Tablet 1 tablet PO DAILY cyclobenzaprine 5 mg tablet 5 mg PO HS PRN (Reason: muscle spasm) Qty: 5 0RF rizatriptan 5 mg tablet See Rx Instructions PO .COMPLEX Qty: 14 0RF Patient Comments: pt no longer taking Rx Instructions: take 1 tablet at onset of headache; if no relief, may repeat 1 tablet after at least 2 hrs PO buspirone 7.5 mg tablet 7.5 mg PO BID Qty: 180 2RF aripiprazole 2 mg tablet See Rx Instructions .ROUTE .COMPLEX Qty: 30 5RF Dose Instruction: TAKE 1 TABLET BY MOUTH ONCE DAILY. ADD TO THE 5 MG TABLETS TO TOTAL 7 MG. Rx Instructions: TAKE 1 TABLET BY MOUTH ONCE DAILY. ADD TO THE 5 MG TABLETS TO TOTAL 7 MG. atorvastatin 20 mg tablet See Rx Instructions .ROUTE .COMPLEX Qty: 90 1RF Dose Instruction: Take 1 tablet by mouth once daily Rx Instructions: Take 1 tablet by mouth once daily lisinopril-hydrochlorothiazide 10-12.5 mg tablet See Rx Instructions .ROUTE .COMPLEX Qty: 90 1RF Dose Instruction: Take 1 tablet by mouth once daily Rx Instructions: Take 1 tablet by mouth once daily fluoxetine 40 mg capsule See Rx Instructions .ROUTE .COMPLEX Qty: 180 1RF Dose Instruction: Take 2 capsules by mouth once daily Rx Instructions: Take 2 capsules by mouth once daily bupropion HCl 300 mg tablet extended release 24 hr See Rx Instructions .ROUTE .COMPLEX Qty: 90 0RF Dose Instruction: TAKE 1 TABLET BY MOUTH IN THE MORNING Rx Instructions: TAKE 1 TABLET BY MOUTH IN THE MORNING aripiprazole [Abilify] 5 mg tablet 5 mg PO DAILY Qty: 30 5RF alprazolam 1 mg tablet 1 mg PO TID PRN (Reason: anxiety) Qty: 60 1RF Follow-up/Referrals: Jennifer Davila, DRY HEAT ROOM ATTENDANT-C [Primary Care Provider] -
--- OUTSIDE RECORDS SUMMARY | 2024-12-04 09:26 | XMS_ITS | Clinical Summary ---
Author Organization [facility] Address [address] [place] [address] Care Team Providers Care Chemist Food Name Role Phone Unavailable Primary Care Provider Unavailabl e Source Comments [facility],non-owned Affiliates and Associated Physician Practices is amultiple site organization consisting of ambulatory clinics and hospital sitesin [place], [place], [place] and [place]. This disclosure is being madepursuant to the Care Everywhere program and may not contain all information available regarding this patient. 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 Bebeto Bardales. These tests need not be, and therefore are not, approved by the [place] Food and Drug Administration. The tests are used for clinical purposes. Billing Codes Specimen Charges Stain Charges 17955 1 5 2:24 PM CDT DERMATOPATHOLOGY LABORATORY Embedded Images 5 2:24 PM CDT DERMATOPATHOLOGY LABORATORY Pathology/Cytolo gy TISSUE SPECIMEN FROM SKIN / Unknown 10/23/2024 3:31 PM CDT 10/27/2024 11:00 AM CDT Shirlene Atkinson MD LAB - PATHOLOGY/CYTOLOGY ORD ERABLES Final Result DERMATOPATHOLOGY LABORATORY [facility] - Department of Dermatology [facility] Medicine [address] [place] [address], [address] [phone] from Last 3 Months [place] [address]
--- OUTSIDE RECORDS SUMMARY | 2024-12-04 09:26 | XMS_ITS | Encounter Summary ---
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 Phone Unavailable Primary Care Provider Unavailabl e Encounter Details Date Type Department Care Team (Late st Contact Info) Description 10/23/2024 Lab Requisition [facility] - DermPath Lab [address] [facility], [place] [phone] Shirlene Atkinson MD [address] [facility] [address] [place] [address] Social History Tobacco Use Types Packs/Day Years Used Date Smoking Tobacco: Never Assessed Comments Unknown Sex and Gender Information Value Date Recorded Sex Assigned at Not on file 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 Gender Identity Not on file Sexual Orientation Not on file documented as of this encounter Plan of Treatment Not on file documented as of this encounter Procedures Procedure Name Priority Date/Time Associated Diagnosis Comments DERMATOPATHOLOGY Routine 10/23/2024 3:31 PM CDT documented in this encounter Results * DERMATOPATHOLOGY (10/23/2024 3:31 PM CDT) Case Report Dermatopathology Report Case: [id number] Authorizing Provider: Shirlene Atkinson MD Collected: 10/23/2024 03:31 PM Ordering Location: [facility] Physician [facility] - Received: 10/27/2024 11:00 AM DermPath Lab [...] characteristic determined by the Dermatopathology Laboratory at [facility], directed by Dr. Bebeto Bardales. These tests need not be, and therefore are not, approved by the [place] Food and Drug Administration. The tests are used for clinical purposes. Billing Codes Specimen Charges Stain Charges 71306 1 2:24 PM CDT DERMATOPATHOLOGY LABORATORY Embedded Images 2:24 PM CDT DERMATOPATHOLOGY LABORATORY Pathology/Cytolo gy TISSUE SPECIMEN FROM SKIN / Unknown 10/23/2024 3:31 PM CDT 10/27/2024 11:00 AM CDT us Shirlene Atkinson MD LAB - PATHOLOGY/CYTOLOGY ORD ERABLES Final Result DERMATOPATHOLOGY LABORATORY [facility] - Department of Dermatology [address] [place] [address], [facility] [phone] documented in this encounter Visit Diagnoses Not on filedocumented in this encounter
== END 2024-12-04 09:34 | disposition home or self-care (01) ==
PROVIDERS: Emergency Provider Emergency Medicine; PCP Nurse Practitioner Family
DX: S59.901A Unspecified injury of right elbow, initial encounter (principal); R51.9 Headache, unspecified; S49.91XA Unspecified injury of right shoulder and upper arm, initial encounter; R73.03 Prediabetes; E78.5 Hyperlipidemia, unspecified; F41.9 Anxiety disorder, unspecified; F32.A Depression, unspecified; Z86.16 Personal history of COVID-19; W19.XXXA Unspecified fall, initial encounter; Z79.899 Other long term (current) drug therapy
CPT/HCPCS: 70450; 73030; 73080; 99284

== ENCOUNTER 2025-05-08 12:28 | Outpatient (CLI) | payer OTHER, SELFPAY ==
--- NOTE | ~2025-05-08 | MM_ITS ---
EXAMINATION: MM screening cresencio BI w mima HISTORY: Screening. TECHNIQUE: Craniocaudal and mediolateral oblique 3-D tomosynthesis images were obtained and synthetic 2-D images were generated. CAD analysis was submitted and interpreted. COMPARISON: None available. BREAST PARENCHYMAL COMPOSITION: Dense: The breasts are heterogeneously dense, Which may obscure small masses FINDINGS: No suspicious masses are seen. There are no suspicious calcifications. No unexplained architectural distortion is seen. There are no skin or nipple abnormalities identified. There is no adenopathy seen on the images submitted. IMPRESSION: No mammographic evidence to suggest malignancy is seen. The patient may return to screening mammography as per ACR guidelines. BI-RADS 1 - Negative. Reviewed, dictated and finalized at location A. UCT PROMOTER SALES PERSON
== END 2025-05-08 12:29 | disposition home or self-care (01) ==
LOC: MICIMG 12:29
PROVIDERS: PCP Nurse Practitioner Family; Visit Provider Nurse Practitioner Family
DX: Z12.31 Encounter for screening mammogram for malignant neoplasm of breast (principal)
CPT/HCPCS: 77063; 77067